=== PATIENT | female | born 1985 | race Asian ===

== ENCOUNTER 2016-12-21 18:55 | Emergency (ER) | payer MEDICAID ==
[~2016-12-21] VITALS: Ht 165.1 cm; Wt 68.0 kg
[2016-12-21 19:00] VITALS: BP_SYST 120
[2016-12-21] MEDS ORDERED: NACL 0.9% 1,000 ML IV ONE (20:00)
[2016-12-21] MEDS ORDERED: LORazepam 2 MG/ML VIAL IVP ONE (20:00)
[2016-12-21] MEDS ORDERED: ONDANSETRON HCL 4 MG/2 ML VIAL IVP ONE (20:00)
[2016-12-21] MEDS ORDERED: LORazepam 2 MG/ML VIAL (FOR ER USE) IVP ONE (20:15)
[2016-12-21] MEDS ORDERED: ALPRAZolam 0.25 MG TABLET PO ONE (20:45)
[2016-12-21] MEDS ORDERED: ONDANSETRON 4 MG ODT TAB PO ONE (20:45)
[2016-12-21 21:10] VITALS: BP_SYST 115
== END 2016-12-21 21:10 | disposition home or self-care (01) ==
LOC: SED 18:55
DX: F41.9 Anxiety disorder, unspecified (principal); R07.89 Other chest pain
CPT/HCPCS: 81025; 93005; 99283; J2060; Q0162; J7030

== ENCOUNTER 2016-12-22 21:52 | Emergency (ER) | payer MEDICAID ==
[~2016-12-22] VITALS: Ht 165.1 cm; Wt 68.0 kg
[2016-12-22 21:58] VITALS: BP_SYST 111
--- NOTE | 2016-12-22 22:00 | NUR ---
Patient evaluated in triage by NP. Reyes
[2016-12-22 22:24] LABS: BASOPHILS # (AUTO) 0.1 K/uL (0.0-0.2); BASOPHILS % (AUTO) 0.7 % (0.0-2.0); EOSINOPHILS # (AUTO) 0.1 K/uL (0.0-0.4); EOSINOPHILS % (AUTO) 1.3 % (0.0-4.0); HEMATOCRIT 36.8 % (36-48); HEMOGLOBIN 12.1 g/dL (12.0-16.0); LYMPHOCYTES # (AUTO) 2.5 K/uL (1.0-5.5); MEAN CORPUSCULAR HEMOGLOBIN 31 pg (27-31); MEAN CORPUSCULAR HGB CONC 33 % (32-36); MEAN CORPUSCULAR VOLUME 95 fL (79.0-98.0); MONOCYTES # (AUTO) 0.6 K/uL (0.0-1.0); MONOCYTES % (AUTO) 5.4 % (1.7-9.3); NEUTROPHILS # (AUTO) 6.9 K/uL (1.8-7.7); NEUTROPHILS % (AUTO) 68.6 % (40.0-70.0); PLATELET COUNT (AUTO) 453 K/uL (130-430); RED BLOOD CELL COUNT(AUTO) 3.87 MIL/uL (4.2-6.2); RED CELL DISTRIBUTION WIDTH 11.6 % (9.0-15.0); WHITE BLOOD COUNT (AUTO) 10.2 K/uL (4.8-10.8)
[2016-12-22 22:33] LABS: CALCIUM 8.8 mg/dL (8.4-11.0); CREATININE 0.96 mg/dL (0.55-1.30)
[2016-12-22 22:38] LABS: ALBUMIN 3.4 g/dL (3.4-4.8); TOTAL BILIRUBIN 0.2 mg/dL (0.0-1.0); TOTAL PROTEIN, SERUM 8.5 g/dL (6.4-8.3)
--- NOTE | 2016-12-22 22:45 | NUR ---
Patient AAO x4, sitting in bed c/o back pain x 1 day that radiates to the left chest with minor shortness of breath. Patient denies chest pain at this time. Denies N/V/D. No acute distress noted, will continue to monitor.
--- NOTE | 2016-12-22 22:45 | NUR ---
Placed in room 08 . Placed on leak detector, blood pressure machine and pulse oximeter. To gown for exam. Side rails up. Report given to RIGOBERTO Rodas.
[2016-12-22] MEDS ORDERED: ASPIRIN 81 MG TAB.CHEW PO ONE (23:00)
[2016-12-22 23:14] LABS: BILIRUBIN,URINE NEGATIVE (NEGATIVE); BLOOD, URINE 2+ (NEGATIVE); COLOR,URINE YELLOW (YELLOW); GLUCOSE,URINE NEGATIVE (NEGATIVE); KETONES,URINE NEGATIVE (NEGATIVE); LEUKOCYTE ESTERASE ,URINE TRACE (NEGATIVE); NITRITE, URINE POSITIVE (NEGATIVE); PROTEIN URINE NEGATIVE (NEGATIVE); UROBILINOGEN,URINE 0.2 (0.2-1.0)
[2016-12-22] MEDS ORDERED: KETOROLAC TROMETHAMINE 60 MG/2 ML VIAL IM ONE (23:15)
[2016-12-22 23:25] LABS: CLARITY/URINE HAZY (CLEAR)
[2016-12-22 23:28] LABS: BACTERIA,URINE MANY /HPF (None Seen); MUCUS,URINE None Seen /LPF (None Seen); RBC,URINE 0-3 /HPF (0-3); YEAST,URINE Rare /HPF (None Seen)
[2016-12-22 23:49] LABS: BARBITURATE, URINE NEGATIVE (NEG <=200); BENZODIAZEPINE, URINE POSITIVE (NEG <=150); CANNABINOID, URINE NEGATIVE (NEG <=50); COCAINE, URINE NEGATIVE (NEG <=150); METHAMPHETAMINES SCREEN,URINE NEGATIVE (NEG <=500); OPIATE, URINE NEGATIVE (NEG <=100); PHENCYCLIDINE SCREEN,URINE NEGATIVE (NEG <=25); UR TRICYCLIC ANTIDEPRESSANTS NEGATIVE (NEG <=300); URINE AMPHETAMINE NEGATIVE (NEG <=500); URINE METHADONE NEGATIVE (NEG <=200); URINE OXYCODONE SCREEN NEGATIVE (NEG <=100); URINE PROPOXYPHENE SCREEN NEGATIVE (NEG <=300)
--- NOTE | 2016-12-22 23:54 | NUR ---
Patient reports pain 0/10 30 minutes after administration of Torodol. No adverse reactions noted. Will continue to monitor.
[2016-12-23] VITALS: BP_SYST 110
--- NOTE | 2016-12-23 | NUR ---
Patient given written and verbal discharge instructions and verbalizes understanding. ER MD discussed with patient the results and treatment provided. Patient in stable condition. ID arm band removed. Rx of doxycycline and naprosyn given. Patient educated on pain management and to follow up with PMD. Pain Scale 0/10 . Opportunity for questions provided and answered.
== END 2016-12-23 | disposition home or self-care (01) ==
LOC: SED 21:52
DX: M94.0 Chondrocostal junction syndrome [Tietze] (principal); N39.0 Urinary tract infection, site not specified
CPT/HCPCS: 36415; 71010; 80053; 80307; 81000; 84484; 85025; 85379; 87086; 93005; 96372; 99285; J1885; 87186-TC